=== PATIENT | female | born 1980 | race African-American/Black ===

== ENCOUNTER 2018-01-22 22:02 | Emergency (ER) | payer OTHER ==
[2018-01-22 22:13] VITALS: BP 102/56; PULSE 79; TEMP 99.2; BMI 36.6
--- NOTE | 2018-01-22 23:12 | PDOC ---
History of Present Illness - General History Source: Patient Exam Limitations: No Limitations - History of Present Illness Initial Comments: 01/22/18 23:28 The patient is a 37 year old female with no significant past medical history who presents to the ED with knee pain for one week. The patient states she developed left sided knee pain that is worsened with bending of the knee one week ago. She reports warmth and edema to her left knee associated with present symptoms. Patient is able to ambulate with pain and today she states her symptoms worsened and she developed numbness from her left thigh radiating to her ankle. Patient also reports one episode of dizziness that has since resided earlier today Denies recent trauma. Denies fever or chills. Denies cough or shortness of breath. Denies rash. Denies a hx of Lyme disease. Denies dysuria or change in urinary output. Denies nausea, vomiting, or diarrhea. 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 Allergies: Amoxicillin, Penicillin <Blanche Enrique - Last Filed: 01/22/18 23:41> <Caryn Baker - Last Filed: 01/23/18 04:07> - General Chief Complaint: Pain, Acute Stated Complaint: LT LEG PAIN Time Seen by Provider: 01/22/18 22:04 Past History <Blanche Enrique - Last Filed: 01/22/18 23:41> - Past Medical History Cardiac Disorders: Yes (MURMUR) COPD: No - Suicide/Smoking/Psychosocial Hx Smoking History: Never smoked <Caryn Baker - Last Filed: 01/23/18 04:07> - Past Medical History Allergies/Adverse Reactions: Allergies Allergy/AdvReac Type Severity Reaction Status Date / Time amoxicillin Allergy Verified 01/22/18 22:03 Penicillins Allergy Verified 01/22/18 22:04 Home Medications: Ambulatory Orders Ibuprofen [Motrin -] 600 mg PO TID PRN #21 tablet 01/23/18 Review of Systems - Review of Systems Able to Perform ROS?: Yes Comments:: 01/22/18 23:28 CONSTITUTIONAL: Absent: fever, chills, diaphoresis, generalized weakness, malaise, loss of appetite HEENT: Absent: rhinorrhea, nasal congestion, throat pain, throat swelling, difficulty swallowing, mouth swelling, ear pain, eye pain, visual Changes CARDIOVASCULAR: Absent: chest pain, syncope, palpitations, irregular heart rate, lightheadedness , peripheral edema RESPIRATORY: Absent: cough, shortness of breath, dyspnea with exertion, orthopnea, wheezing, stridor, hemoptysis GASTROINTESTINAL: Absent: abdominal pain, abdominal distension, nausea, vomiting, diarrhea, constipation, melena, hematochezia GENITOURINARY: Absent: dysuria, frequency, urgency, hesitancy, hematuria, flank pain, genital pain MUSCULOSKELETAL: + knee pain, knee swelling SKIN: Absent: rash, itching, pallor HEMATOLOGIC/IMMUNOLOGIC: Absent: easy bleeding, easy bruising, lymphadenopathy, frequent infections ENDOCRINE: Absent: unexplained weight gain, unexplained weight loss, heat intolerance, cold intolerance NEUROLOGIC: + dizziness Absent: headache, focal weakness or paresthesias, unsteady gait, seizure, mental status changes, bladder or bowel incontinence PSYCHIATRIC: Absent: anxiety, depression, suicidal or homicidal ideation, hallucinations. All Other Systems: Reviewed and Negative <Blanche Enrique - Last Filed: 01/22/18 23:41> *Physical Exam - Vital Signs Last Vital Signs Temp Pulse Resp BP Pulse Ox 99.2 F 79 16 102/56 100 01/22/18 22:05 01/22/18 22:05 01/22/18 22:05 01/22/18 22:05 01/22/18 22:05 - Physical Exam Comments: 01/22/18 23:28 GENERAL: The patient is awake, alert, and fully oriented, in no acute distress. HEAD: Normal with no signs of trauma. EYES: Pupils equal, round and reactive to light, extraocular movements intact, sclera anicteric, conjunctiva clear with no pallor. ENT: Ears normal, nares patent, oropharynx clear without exudates. Moist mucous membranes. NECK: Normal range of motion, supple without lymphadenopathy, JVD, or masses. LUNGS: Breath sounds equal, clear to auscultation bilaterally. No wheeze/ crackles. HEART: Regular rate and rhythm, normal S1 and S2 without murmur or rub. ABDOMEN: Soft/nontender/nondistended. BS wnl. No guarding or rebound. No palpable masses. No hepatosplenomegaly. EXTREMITIES: + Left knee is edematous, diffusely tender and warm to touch. There is no posterior tenderness ,edema, or cords. No other obvious joint edema , tenderness, or increased warmth. NEUROLOGICAL: Cranial nerves II through XII grossly intact. Normal speech, normal gait. PSYCH: Normal mood, normal affect. SKIN: Warm, Dry, normal turgor, no rashes or lesions noted. 01/22/18 23:41 <Blanche Enrique - Last Filed: 01/22/18 23:41> - Vital Signs Last Vital Signs Temp Pulse Resp BP Pulse Ox 99.2 F 79 16 102/56 100 01/22/18 22:05 01/22/18 22:05 01/22/18 22:05 01/22/18 22:05 01/22/18 22:05 <Caryn Baker - Last Filed: 01/23/18 04:07> ED Treatment Course - LABORATORY CBC & Chemistry Diagram: 01/22/18 23:25 01/22/18 23:25 <Blanche Enrique - Last Filed: 01/22/18 23:41> - LABORATORY CBC & Chemistry Diagram: 01/22/18 23:25 01/22/18 23:25 <Caryn Baker - Last Filed: 01/23/18 04:07> Medical Decision Making - Medical Decision Making Documentation has been prepared under my direction and personally reviewed by me in its entirety. I attest that this documented accurately reflects all work, treatment, procedures and medical decision making performed by me. As noted above, this 37-year-old woman presents with a one-week history of pain and swelling in her left knee. 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 No history of fever/chills/rash or insect bite. The area around her home is wooded and there are many deer. No history of any other arthritis. No family history of gout as far she knows. Patient is very concerned regarding DVT although her pain is not primarily located in the posterior portion of her knee ER remainder of her leg. She also has no other risk factors for thromboembolic disease. 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 CBC/chemistry profile/UA/PGU/Lyme titers sent. No elevation of white blood cell count noted. Patient has mild anemia (patient aware of this). No other abnormality of CBC. Chemistry profile essentially normal.UA unremarkable and PGU is negative Lyme titers pending. Differential diagnosis includes monarthritis (inflammatory or infectious) versus soft tissue injury. 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 Knee immobilizer placed. The patient will follow-up with orthopedic service ( Dr. Garrett group). No work tomorrow; will call office for follow-up appointment <Caryn Baker - Last Filed: 01/23/18 04:07> *DC/Admit/Observation/Transfer <Blanche Enrique - Last Filed: 01/22/18 23:41> <Caryn Baker - Last Filed: 01/23/18 04:07> Diagnosis at time of Disposition: Left knee pain Qualifiers: Chronicity: acute Qualified Code(s): M25.562 - Pain in left knee - Discharge Dispostion Disposition: HOME Condition at time of disposition: Stable - Prescriptions Prescriptions: Ibuprofen [Motrin -] 600 mg PO TID PRN #21 tablet PRN Reason: Pain - Referrals Referrals: Hernandez Garrett MD [Staff Physician] - Call tomorrow - Patient Instructions Printed Discharge Instructions: DI for Knee Pain Additional Instructions: Knee immobilizer during the day Motrin 600 mg 3 times a day as needed for pain (take with food) Follow-up within the next 5 days with orthopedic group () call orthopedic office tomorrow AM as discussed No work tomorrow Return to ER if you have worsening pain/swelling - Post Discharge Activity Forms/Work/School Notes: Back to Work
[2018-01-22 23:36] LABS: BASO % 0.6 % (0-2.0); EOS % 2.8 % (0-4.5); HEMATOCRIT 32.2 % (32.4-45.2); HEMOGLOBIN 10.3 GM/dl (10.7-15.3); LYMPH % 26.5 % (8-40); MCH 26.1 pg (25.7-33.7); MCHC 31.8 g/dl (32.0-36.0); MEAN CELL VOLUME 81.9 fl (80-96); MEAN PLT VOLUME 9.3 fl (7.5-11.1); MONO % 6.1 % (3.8-10.2); PLATELET COUNT 271 K/MM3 (134-434); RBC 3.94 M/mm3 (3.60-5.2); RDW 14.9 % (11.6-15.6); WHITE BLOOD COUNT 10.5 K/mm3 (4.0-10.8)
[2018-01-22 23:42] LABS: PH,URINE 5.5 (4.5-8); URINE APPEARANCE Clear; URINE BILIRUBIN Negative (NEGATIVE); URINE COLOR Yellow; URINE GLUCOSE (UA) Negative (NEGATIVE); URINE KETONE Negative (NEGATIVE); URINE LEUK ESTERASE Negative (NEGATIVE); URINE NITRITE Negative (NEGATIVE); URINE PROTEIN Negative (NEGATIVE); URINE UROBILINOGEN 0.2 (0.2-1.0)
[2018-01-22 23:47] LABS: HCG,QUALITATIVE URINE Negative
[2018-01-22 23:47] LABS: ALBUMIN 3.7 g/dl (3.5-5.0); ALK PHOS 38 U/L (32-92); ANION GAP 8 MMOL/L (8-16); BILIRUBIN,TOTAL 0.6 mg/dl (0.2-1.0); BLOOD UREA NITROGEN 19 mg/dl (7-18); CALCIUM 9.1 mg/dl (8.4-10.2); CHLORIDE 102 mmol/L (98-107); CO2 24 mmol/L (22-28); CREATININE 0.9 mg/dl (0.6-1.3); GLUCOSE,RANDOM 95 mg/dl (74-106); SGOT/AST 15 U/L (10-42); SGPT/ALT 13 U/L (10-40); SODIUM 134 mmol/L (136-145); TOT PROT 6.8 g/dl (6.4-8.3)
[2018-01-22 23:48] LABS: EPI CELLS FEW /HPF; URINE BACTERIA FEW /hpf (NEGATIVE); URINE WBC 0-2 (0-5)
[2018-01-23] MEDS ORDERED: KETOROLAC TROMETHAMINE 30 MG/1 ML VIAL IVPUSH ONE (01:11)
[2018-01-23] MEDS ORDERED: KETOROLAC TROMETHAMINE 30 MG/1 ML VIAL ONE (01:19)
== END 2018-01-23 01:39 | disposition home or self-care (01) ==
LOC: FER 22:02
PROC: 3E0333Z Introduction of Anti-inflammatory into Peripheral Vein, Percutaneous Approach (ICD-10-PCS; principal; 2018-01-22)
DX: M25.562 Pain in left knee (principal); R01.1 Cardiac murmur, unspecified
CPT/HCPCS: 36415; 80053; 81003; 81015; 84703; 85025; 86618; 93971-TC; 99282-25

== ENCOUNTER 2018-03-19 14:20 | Emergency (ER) | payer OTHER ==
[2018-03-19 14:45] VITALS: BP 108/83; PULSE 110; TEMP 98.9; BMI 36.3
--- NOTE | 2018-03-19 15:12 | PDOC ---
History of Present Illness - General Chief Complaint: Sore Throat Stated Complaint: SORE THROAT Time Seen by Provider: 03/19/18 14:35 History Source: Patient Exam Limitations: No Limitations - History of Present Illness Initial Comments: 03/19/18 15:16 37y F presenting with fever, sore throat, ear pain for the last 2 days. Mom states that one of her children recently was diagnosed with strep and she is concerned that she and her son may have strep. The patient denies any cough, nasal congestion, nausea, vomiting, chest pain, short of breath. Past History - Past Medical History Allergies/Adverse Reactions: Allergies Allergy/AdvReac Type Severity Reaction Status Date / Time amoxicillin Allergy Verified 01/22/18 22:03 Penicillins Allergy Verified 01/22/18 22:04 Home Medications: Ambulatory Orders Ibuprofen [Motrin -] 600 mg PO TID PRN #21 tablet 01/23/18 Cardiac Disorders: Yes (MURMUR) COPD: No - Suicide/Smoking/Psychosocial Hx Smoking History: Never smoked Hx Alcohol Use: No Drug/Substance Use Hx: No Substance Use Type: None Review of Systems - Review of Systems Able to Perform ROS?: Yes Comments:: 03/19/18 15:17 Constitutional - +subjective fever no reported Chills, HEENT: +sore throat,bl ear pain no reported vision changes, Respiratory: no reported cough, sob Cardiac: no reported chest pain, palpitations, Abd/GI: no reported abd pain, nausea, vomiting, blood per rectum, melena, diarrhea skin - no reported rash neurological: no reported headache, *Physical Exam - Vital Signs Last Vital Signs Temp Pulse Resp BP Pulse Ox 98.9 F 110 H 16 108/83 100 03/19/18 14:27 03/19/18 14:27 03/19/18 14:27 03/19/18 14:27 03/19/18 14:27 - Physical Exam Comments: 03/19/18 15:18 GENERAL: The patient is awake, alert, and fully oriented, Nontoxic - in no acute distress. HEAD: Normocephalic, atraumatic. EYES: extraocular movements intact, sclera anicteric, conjunctiva clear. ENT: Normal voice, Moist mucous membranes, TMs are normal without signs of bulging or erythema, normal light reflex, posterior pharynx appears normal without any signs of erythema, exudates, induration. uvula midline and symmetric posterior pharynx NECK: Normal range of motion, supple, no cervical lympadenopathy SKIN: Warm, Dry, normal turgor, Medical Decision Making - Medical Decision Making 03/19/18 15:19 Suspect viral syndrome/uri versus strep Considered treatment as the son was recently diagnosed with strep by PMD however the patient's throat appears normal without any signs of inflammation Will obtain rapid strep 03/19/18 16:29 rapid strep neg pt feeling better will dc pt with outpatient management return precautions were discussed I discussed the physical exam findings, ancillary test results and final diagnoses with the patient. I answered all of the patient's questions. The patient was satisfied with the care received and felt comfortable with the discharge plan and treatment plan. The patient will call their primary care physician within 24 hours to arrange follow-up and will return to the Emergency Department with any new, persistent or worsening symptoms. *DC/Admit/Observation/Transfer Diagnosis at time of Disposition: Upper respiratory infection Qualifiers: URI type: unspecified viral URI Qualified Code(s): J06.9 - Acute upper respiratory infection, unspecified - Discharge Dispostion Disposition: HOME Condition at time of disposition: Improved Decision to Admit order: No - Referrals Referrals: Joni Taveras [Primary Care Provider] - - Patient Instructions Printed Discharge Instructions: DI for Viral Upper Respiratory Infection -- Adult Additional Instructions: Return to the emergency department immediately with ANY new, persistent or worsening symptoms. You MUST call and follow up with your doctor in 3-4 days for further evaluation of your symptoms. Results were discussed with you. Please make sure your doctor reviews the results of your emergency evaluation. If your throat culture is positive, we will notify you. Print Language: YORUBA - Post Discharge Activity Forms/Work/School Notes: Back to Work
== END 2018-03-19 16:33 | disposition home or self-care (01) ==
LOC: FER 14:20
DX: J06.9 Acute upper respiratory infection, unspecified (principal); R01.1 Cardiac murmur, unspecified
CPT/HCPCS: 87070; 99281-25

== ENCOUNTER 2018-09-13 20:10 | Emergency (ER) | payer OTHER ==
[2018-09-13 20:30] VITALS: BP 117/56; PULSE 75; TEMP 98.2; BMI 36.6
[2018-09-13 20:35] LABS: HCG,QUALITATIVE URINE Negative
[2018-09-13 20:42] LABS: EPITHELIAL CELLS MODERATE /hpf
[2018-09-13] MEDS ORDERED: NITROFURANTOIN MACROCRYSTAL 50 MG CAPSULE (FP) PO SCH (20:45)
--- NOTE | 2018-09-13 20:51 | PDOC ---
Documentation entered by Betzaida Marie SCRIBE, acting as scribe for Elmer Munoz MD. Elmer Munoz MD: This documentation has been prepared by the Frank horn Daisy, SCRIBE, under my direction and personally reviewed by me in its entirety. I confirm that the documentation accurately reflects all work, treatment, procedures, and medical decision making performed by me. History of Present Illness - General Chief Complaint: Urinary Problem Stated Complaint: URINARY SX Time Seen by Provider: 09/13/18 20:12 History Source: Patient Exam Limitations: No Limitations - History of Present Illness Initial Comments: 09/13/18 20:19 The patient is a 38YOF with no PMH who presents to the ER with dysuria that began earlier today. She reports associated suprapubic cramping. She also reports she may have noticed hematuria. Denies any fever, chills, nausea, vomiting, or vaginal discharge. She reports having similar symptoms two years ago and was diagnosed with a UTI then. She does note that she does not typically drink enough water daily. Allergies: Amoxicillin, Penicillins Social: Denies toxic habits. PCP: Dr. Taveras Past History - Past Medical History Allergies/Adverse Reactions: Allergies Allergy/AdvReac Type Severity Reaction Status Date / Time amoxicillin Allergy Verified 09/13/18 20:11 Penicillins Allergy Verified 09/13/18 20:11 Home Medications: Ambulatory Orders Nitrofurantoin Monohyd/M-Cryst [Macrobid -] 100 mg PO BID #14 capsule 09/13/18 Cardiac Disorders: Yes (HEART MURMUR) COPD: No - Reproductive History Is Patient Now?: No - Suicide/Smoking/Psychosocial Hx Smoking History: Never smoked Hx Alcohol Use: No Drug/Substance Use Hx: No Substance Use Type: None Review of Systems - Review of Systems Able to Perform ROS?: Yes Comments:: 09/13/18 20:23 "GENERAL/CONSTITUTIONAL: No fever or chills. No weakness. HEAD, EYES, EARS, NOSE AND THROAT: No change in vision. No ear pain or discharge. No sore throat. CARDIOVASCULAR: No chest pain, no shortness of breath, no loss of consciousness RESPIRATORY: No cough, wheezing, or hemoptysis. GASTROINTESTINAL: (+) abdominal cramping. No nausea, vomiting, diarrhea or constipation. GENITOURINARY: (+) dysuria. No frequency, or change in urination. MUSCULOSKELETAL: No joint or muscle swelling or pain. No neck or back pain. SKIN: No rash NEUROLOGIC: No vertigo, no change in strength/sensation. ENDOCRINE: No increased thirst. No abnormal weight change. HEMATOLOGIC/LYMPHATIC: No anemia, easy bleeding, or history of blood clots. ALLERGIC/IMMUNOLOGIC: No hives or skin allergy. *Physical Exam - Vital Signs Last Vital Signs Temp Pulse Resp BP Pulse Ox 98.2 F 75 18 117/56 L 99 09/13/18 20:10 09/13/18 20:10 09/13/18 20:10 09/13/18 20:10 09/13/18 20:10 - Physical Exam Comments: 09/13/18 20:23 "GENERAL/CONSTITUTIONAL: No fever or chills. No weakness. HEAD, EYES, EARS, NOSE AND THROAT: No change in vision. No ear pain or discharge. No sore throat. CARDIOVASCULAR: No chest pain, no shortness of breath, no loss of consciousness RESPIRATORY: No cough, wheezing, or hemoptysis. GASTROINTESTINAL: No nausea, vomiting, diarrhea or constipation. GENITOURINARY: No dysuria, frequency, or change in urination. MUSCULOSKELETAL: No joint or muscle swelling or pain. No neck or back pain. SKIN: No rash NEUROLOGIC: No vertigo, no change in strength/sensation. ENDOCRINE: No increased thirst. No abnormal weight change. HEMATOLOGIC/LYMPHATIC: No anemia, easy bleeding, or history of blood clots. ALLERGIC/IMMUNOLOGIC: No hives or skin allergy. ED Treatment Course - ADDITIONAL ORDERS Additional order review: Laboratory Results 09/13/18 20:21 Urine Color Yellow Urine Appearance Slightly Urine pH 5.5 Urine Protein 2+ H Urine Glucose (UA) Negative Urine Ketones Trace Urine Blood 3+ H Urine Nitrite Positive H Urine Bilirubin Negative Urine Urobilinogen 0.2 Ur Leukocyte Esterase 1+ Urine HCG, Qual Negative Medical Decision Making - Medical Decision Making 09/13/18 20:42 38 F with dysuria. Likely UTI. Benign abdominal exam, no CVAT. - UA, UPT, UCx 09/13/18 20:49 UA consistent with UTI Will tx with macrobid Pt is well appearing, with normal vitals. Clinically stable for DC at this time. I discussed the physical exam findings, ancillary test results and final diagnoses with the patient. I answered all of the patient's questions. The patient was satisfied with the care received and felt comfortable with the discharge plan and treatment plan. The patient agrees to follow up with the primary care physician within 24-72 hours. *DC/Admit/Observation/Transfer Diagnosis at time of Disposition: UTI (urinary tract infection) - Discharge Dispostion Disposition: HOME Condition at time of disposition: Stable - Prescriptions Prescriptions: Nitrofurantoin Monohyd/M-Cryst [Macrobid -] 100 mg PO BID #14 capsule - Referrals Referrals: Joni Taveras [Primary Care Provider] - - Patient Instructions Printed Discharge Instructions: DI for Urinary Tract Infection (UTI) Additional Instructions: You have a urinary tract infection. Take the antibiotics as prescribed to treat it. If you experience any worsening pain, vomiting, fevers, back pain, or any other concerning symptoms, return to the ER immediately. Otherwise, follow up with your primary doctor within 1 week. - Post Discharge Activity - Attestations Physician Attestion: 09/13/18 20:50 I, Dr. Elmer Munoz MD, attest that this document has been prepared under my direction and personally reviewed by me in its entirety. I further attest, that it accurately reflects all work, treatment, procedures and medical decision -making performed by me.
[2018-09-13] MEDS ORDERED: NITROFURANTOIN MACROCRYSTAL 50 MG CAPSULE (FP) ONE (20:54)
== END 2018-09-13 21:01 | disposition home or self-care (01) ==
LOC: FER 20:10
DX: N39.0 Urinary tract infection, site not specified (principal)
CPT/HCPCS: 81003; 81015; 84703; 87086; 99283-25

== ENCOUNTER 2018-11-02 07:42 | Emergency (ER) | payer OTHER ==
[2018-11-02 07:51] VITALS: BP 119/58; PULSE 62; TEMP 98.2; BMI 36.6
--- NOTE | 2018-11-02 08:02 | PDOC ---
History of Present Illness - General Chief Complaint: Edema Stated Complaint: BOTH ANKLES SWOLLEN Time Seen by Provider: 11/02/18 07:43 - History of Present Illness Initial Comments: 11/02/18 08:04 chief complaint: Right leg pain and swelling History of present illness: Patient states that both ankles have been swelling after prolonged standing at work. Last night, her right leg was consideraby more swollen than the left, and this is unusual. there is also posterior calf pain on the right. The left calf is not painful. Review of sys: Denies chest pain, shortness of breath, abdominal pain, nausea, vomiting, diarrhea, visual or focal neuroc symptoms, unsteadiness of gait. Denies back pain,hip pain,distal numbness, tingling, weakness, or limited range of motion Past medical history: Mild obesity,elevated cholesterol but on no therapy. Denies high blood pressure,diabetes, hematologic or coagulation problems in the past, blood clots or bleeding,medication with estrogens. Social history: Works 7 days per week, spends a lot of time onher feet. d Denies tobacco, alcohol, or nonprescription drugs. stable home and family Family history: father with [place] late 40s, mother with diabetes Physical exam: Alert oriented no acute distress cheerful cooperative Afebrile, vital signs normal HEENT clear Neck supple without bruit mass or nodes Lungs clear full breath sounds bilaterally CV S1 and S2 normal without murmur rub or gallop pulses full and symmetric no JVD ordema Abdomen soft nontender without mass or organomegaly Extremities: Right calf mild swelling and tenderness mid calf posteriorly. No edema. Pulses full. No sensory or motor defiCits Left leg without swelling or tenderness. Impression: minimal risk factors for DVT, though this is a conderation due to unilateral involvement. Otherwise, chronic calf strain and or venous stasis. Plan: Venous Doppler, further evaluation depending on results. Past History - Past Medical History Allergies/Adverse Reactions: Allergies Allergy/AdvReac Type Severity Reaction Status Date / Time amoxicillin Allergy Verified 11/02/18 07:43 Penicillins Allergy Verified 11/02/18 07:43 Home Medications: Ambulatory Orders NK [No Known Home Medication] 11/02/18 Cardiac Disorders: Yes (HEART MURMUR) COPD: No - Suicide/Smoking/Psychosocial Hx Smoking History: Never smoked Have you smoked in the past 12 months: No Information on smoking cessation initiated: No Hx Alcohol Use: No Drug/Substance Use Hx: No Substance Use Type: None *Physical Exam - Vital Signs Last Vital Signs Temp Pulse Resp BP Pulse Ox 98.2 F 62 20 119/58 L 100 11/02/18 07:42 11/02/18 07:42 11/02/18 07:42 11/02/18 07:42 11/02/18 07:42 Medical Decision Making - Medical Decision Making 11/02/18 10:38 Ultrasound is negative for DVT Javy wrap applied. Patient comfortable, no distal pain, numbness or tingling. Has appointment with vascular 11/02/18 11:10 *DC/Admit/Observation/Transfer Diagnosis at time of Disposition: Varicose veins of bilateral lower extremities with pain - Discharge Dispostion Disposition: HOME Condition at time of disposition: Stable Decision to Admit order: No - Referrals - Patient Instructions Printed Discharge Instructions: DI for Varicose Veins - Post Discharge Activity Forms/Work/School Notes: Back to Work
== END 2018-11-02 10:48 | disposition home or self-care (01) ==
LOC: FER 07:42
DX: I86.8 Varicose veins of other specified sites (principal); R01.1 Cardiac murmur, unspecified
CPT/HCPCS: 93971-TC; 99281-25

== ENCOUNTER 2018-11-07 07:45 | Emergency (ER) | payer OTHER ==
[2018-11-07 07:49] VITALS: BMI 36.6
--- NOTE | 2018-11-07 07:50 | PDOC ---
History of Present Illness - General Chief Complaint: Urinary Problem Stated Complaint: BURNING URINATION Time Seen by Provider: 11/07/18 07:49 - History of Present Illness Initial Comments: 11/07/18 08:41 38yo female with no pmhx presents for eval of dysuria and urgency in urination that started this am. Pt states she was at work in [place] when she developed dysuria and urgency of urination. No fevers. States saw a small amount of pink tinged urine. No back or flank pain. No abd pain. No n/v/d. No cp/sob. Pt states she is also concerned she is , had unprotected intercourse at the end of october - fdlmp was also end of october. Pt denies vaginal complaints. No discharge, no bleeding, no itching. Pt denies all other complaints. Arrives ambulatory in the ED. Pmhx: denies Pshx: denies Allergies: amoxicillin, pcn Past History - Past Medical History Allergies/Adverse Reactions: Allergies Allergy/AdvReac Type Severity Reaction Status Date / Time amoxicillin Allergy Verified 11/07/18 07:46 Penicillins Allergy Verified 11/07/18 07:46 Home Medications: Ambulatory Orders Nitrofurantoin Monohyd/M-Cryst [Macrobid -] 100 mg PO BID #14 capsule 11/07/18 Cardiac Disorders: Yes (HEART MURMUR) COPD: No - Suicide/Smoking/Psychosocial Hx Smoking History: Never smoked Have you smoked in the past 12 months: No Hx Alcohol Use: Yes (SOCIAL) Drug/Substance Use Hx: No Substance Use Type: None Review of Systems - Review of Systems Able to Perform ROS?: Yes Is the patient limited [place] proficient: No Constitutional: No: Fever HEENTM: No: Nose Pain, Throat Pain Respiratory: No: Cough, Shortness of Breath Cardiac (ROS): No: Chest Pain, Palpitations ABD/GI: No: Diarrhea, Nausea, Vomiting, Abdominal cramping : Yes: Burning, Dysuria. No: Flank Pain Musculoskeletal: No: Back Pain Integumentary: No: Rash Neurological: No: Headache, Numbness, Paresthesia, Ataxia All Other Systems: Reviewed and Negative *Physical Exam - Vital Signs Last Vital Signs Temp Pulse Resp BP Pulse Ox 0/0 L 11/07/18 07:46 - Physical Exam General Appearance: Yes: Nourished, Appropriately Dressed. No: Apparent Distress HEENT: positive: NUSRAT, Normal Voice Neck: positive: Supple Respiratory/Chest: positive: Lungs Clear, Normal Breath Sounds Cardiovascular: positive: Regular Rhythm, Regular Rate, S1, S2. negative: Edema Gastrointestinal/Abdominal: positive: Normal Bowel Sounds, Soft. negative: Guarding, Rebound, Tenderness Musculoskeletal: positive: Normal Inspection. negative: CVA Tenderness Extremity: positive: Normal Capillary Refill, Normal Inspection. negative: Swelling, Calf Tenderness Integumentary: positive: Normal Color, Dry, Warm Neurologic: positive: Fully Oriented, Alert, Other (ambulatory with a steady gait) Medical Decision Making - Medical Decision Making 11/07/18 08:44 a/p: 38yo female with dysuria and urgency/freq -concern for uti -pt also concerned for preg -discussed that given her last menstrual cycle was recent and intercourse just after even if preg test was negative today she could be -discussed testing for uti -will send ua and ucg -will monitor and reassess, pt is nontoxic in appearance 11/07/18 08:45 ucg negative 11/07/18 08:50 pt with symptoms and + leuks -given concern for poss preg, even though neg test today will treat with macrobid discussed taking with food and milk discussed follow up with [facility] answered all questions pt stable for dc to home *DC/Admit/Observation/Transfer Diagnosis at time of Disposition: Urinary tract infection - Discharge Dispostion Disposition: HOME Condition at time of disposition: Stable Decision to Admit order: No - Prescriptions Prescriptions: Nitrofurantoin Monohyd/M-Cryst [Macrobid -] 100 mg PO BID #14 capsule - Referrals Referrals: Gavin Powell MD [Staff Physician] - Evan Maxwell MD [Staff Physician] - - Patient Instructions Printed Discharge Instructions: DI for Urinary Tract Infection (UTI) Additional Instructions: Please take all medications as prescribed. Please take with food or milk. Please take tylenol as needed for pain. Please follow up with your PMD and [facility]. If you symptoms persist please also contact the urologist for further evaluation of your UTI. Please return to the ED with any further concerns or complaints. Please do not hold your urine. Please drink plenty of water while taking this medication. - Post Discharge Activity
[2018-11-07 07:58] VITALS: BP 116/55; PULSE 66; TEMP 98.4
[2018-11-07] MEDS ORDERED: NITROFURANTOIN MACROCRYSTAL 50 MG CAPSULE (FP) ONE (08:51)
[2018-11-07 08:59] LABS: EPITHELIAL CELLS MODERATE /hpf
[2018-11-07] MEDS ORDERED: NITROFURANTOIN MACROCRYSTAL 50 MG CAPSULE (FP) PO SCH (09:00)
== END 2018-11-07 08:58 | disposition home or self-care (01) ==
LOC: FER 07:45
DX: N39.0 Urinary tract infection, site not specified (principal)
CPT/HCPCS: 81003; 81015; 81025; 87086; 87186; 99282-25

== ENCOUNTER 2020-08-23 18:55 | Emergency (ER) | payer OTHER ==
[2020-08-23 19:15] VITALS: BP 118/67; PULSE 76; TEMP 98.7; BMI 83.4
[2020-08-23 20:12] LABS: BASO % 0.5 % (0-2.0); EOS % 3.5 % (0-4.5); HEMATOCRIT 30.1 % (32.4-45.2); HEMOGLOBIN 10.1 GM/dl (10.7-15.3); LYMPH % 22.8 % (8-40); MCH 26.9 pg (25.7-33.7); MCHC 33.5 g/dl (32.0-36.0); MEAN CELL VOLUME 80.2 fl (80-96); MEAN PLT VOLUME 9.4 fl (7.5-11.1); MONO % 5.2 % (3.8-10.2); PLATELET COUNT 295 K/MM3 (134-434); RBC 3.76 M/mm3 (3.60-5.2); RDW 15.1 % (11.6-15.6); WHITE BLOOD COUNT 11.1 K/mm3 (4.0-10.8)
[2020-08-23 20:27] LABS: ALBUMIN 3.7 g/dl (3.4-5.0); BILIRUBIN,TOTAL 0.3 mg/dl (0.2-1); CALCIUM 9.1 mg/dl (8.5-10); CREATININE 0.8 mg/dl (0.55-1.3); TOT PROT 6.9 g/dl (6.4-8.2)
[2020-08-23 20:59] LABS: N-TERMINAL BNP 28.3 pg/ml (5-125)
== END 2020-08-23 22:58 | disposition home or self-care (01) ==
LOC: FER 18:55
DX: R07.89 Other chest pain (principal); F43.0 Acute stress reaction
CPT/HCPCS: 36415; 71046-TC-FY; 80053; 83880; 85025; 85379; 93005; 99282-25

== ENCOUNTER 2020-10-03 22:04 | Emergency (ER) | payer OTHER ==
[2020-10-03 22:12] VITALS: BP 113/74; PULSE 80; TEMP 99.2; BMI 36.6
[2020-10-03] MEDS ORDERED: DIPHTH,PERTUSS(ACELL),TET 0.5 ML DISP.SYRIN IM ONE ×2 (22:32→22:34)
== END 2020-10-03 22:58 | disposition home or self-care (01) ==
LOC: FER 22:04
PROC: 3E0234Z Introduction of Serum, Toxoid and Vaccine into Muscle, Percutaneous Approach (ICD-10-PCS; principal; 2020-10-03)
DX: L03.011 Cellulitis of right finger (principal)
CPT/HCPCS: 90471; 90715; 99284-25

== ENCOUNTER 2020-11-16 09:24 | Emergency (ER) | payer OTHER ==
[2020-11-16 09:30] VITALS: BP 121/67; PULSE 68; TEMP 98.3; BMI 36.6
[2020-11-16] MEDS ORDERED: SODIUM CHLORIDE 0.9% 500 ML INFUS.BAG IV ONE (09:48)
[2020-11-16 10:16] LABS: HCG,QUALITATIVE URINE Negative
[2020-11-16 10:41] LABS: BASO % 1.5 % (0-2.0); EOS % 2.2 % (0-4.5); HEMATOCRIT 33.5 % (32.4-45.2); HEMOGLOBIN 10.8 GM/dl (10.7-15.3); MCH 25.5 pg (25.7-33.7); MCHC 32.2 g/dl (32.0-36.0); MEAN CELL VOLUME 79.1 fl (80-96); MEAN PLT VOLUME 9.5 fl (7.5-11.1); MONO % 4.8 % (3.8-10.2); NEUT % 69.5 % (42.8-82.8); PLATELET COUNT 267 10^3/uL (134-434); RBC 4.23 M/mm3 (3.60-5.2); RDW 15.4 % (11.6-15.6); WHITE BLOOD COUNT 9.1 K/mm3 (4.0-10.8)
[2020-11-16 10:44] LABS: ALBUMIN 3.9 g/dl (3.4-5.0); BILIRUBIN,TOTAL 0.8 mg/dl (0.2-1); CALCIUM 8.8 mg/dl (8.5-10); CREATININE 0.8 mg/dl (0.55-1.3); TOT PROT 7.4 g/dl (6.4-8.2)
[2020-11-17 14:10] LABS: SARS-CoV-2 NAA Not Detected (Not Detected)
== END 2020-11-16 12:10 | disposition home or self-care (01) ==
LOC: FER 09:24
DX: E86.0 Dehydration (principal); M79.10 Myalgia, unspecified site; R06.02 Shortness of breath
CPT/HCPCS: 36415; 71046-TC-FY; 80053; 81003; 82550; 84484; 84703; 85025; 87086; 93005; 99285-25; C9803; U0003; U0005

== ENCOUNTER 2020-12-18 14:05 | Emergency (ER) | payer OTHER ==
[2020-12-18 14:11] VITALS: BP 114/68; PULSE 80; TEMP 98.1; BMI 36.6
[2020-12-18 17:11] LABS: HCG,QUALITATIVE URINE Negative
== END 2020-12-18 16:03 | disposition home or self-care (01) ==
LOC: FER 14:05
DX: M54.2 Cervicalgia (principal); M79.601 Pain in right arm
CPT/HCPCS: 81003; 84703; 87077; 87086; 93005; 93010; 99284-25

== ENCOUNTER 2021-01-14 23:20 | Emergency (ER) | payer OTHER ==
[2021-01-14 23:28] VITALS: BP 124/73; PULSE 72; TEMP 98.8; BMI 36.7
== END 2021-01-15 00:38 | disposition home or self-care (01) ==
LOC: FER 23:20
DX: M54.12 Radiculopathy, cervical region (principal)
CPT/HCPCS: 93005; 99283-25